=== PATIENT | female | born 1985 | race Two or more races ===

== ENCOUNTER 2024-08-22 22:20 | Emergency (ER) | payer OTHER ==
[~2024-08-22] VITALS: Ht 167.6 cm; Wt 65.2 kg
[2024-08-22 23:23] VITALS: BP 145/98; PULSE 95; RESP 16; TEMP 98.9; O2SAT 97
--- NOTE | 2024-08-22 23:28 | ED.PDOC ---
Foreign Body HPI Comments 39F was cleaning her ear with a q-tip when the tip broke off in her ear just prior to arrival. Patient reports she tried to reach it but was unsuccessful. 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 All Other Systems: Reviewed and Negative Physical Exam General Appearance: No Apparent Distress, Normal HEENT: Other (cotton tip visible in left ear) Neck: Full Range of Motion, Non-Tender, Normal, Normal Inspection Respiratory: NOT DONE Cardiovascular: NOT DONE Breast Exam: Deferred Gastrointestinal: NOT DONE Genitalia: Deferred Pelvic: Deferred Rectal: Deferred Extremities: No calf tenderness, Normal capillary refill, Normal inspection, Normal range of motion, Non-tender, No pedal edema Neurologic: Alert, data entry supervisor II-XII nml as Tested, No Motor Deficits, Normal Affect, Normal Mood, No Sensory Deficits Cerebellar Function: NOT DONE Reflexes: NOT DONE Skin: NOT DONE Lymphatic: No Adenopathy Was a procedure done? Was a procedure done?: Yes Sedation Sedation?: No Foreign Body Removal Foreign body in: Ear Procedure: Removed Informed consent obtained: Yes Risks/benefits/alt described: Yes FB Differential Dx Differential Diagnosis: Foreign Body X-Ray, Labs, Meds, VS Vital Signs Date Time Temp Pulse Resp B/P (MAP) Pulse Ox O2 Delivery O2 Flow Rate FiO2 08/22/24 23:23 Room Air* 0 21 08/22/24 23:23 98.9 95 16 145/98 (114) 97 98.9 08/22/24 23:20 98.9 95 16 145/98 (114) 97 Time of 1ST Reevaluation: 23:27 Reevaluation 1ST: Improved Patient Education/Counseling: Diagnosis, Treatment Family Education/Counseling: No Family Present Departure 1 Departure Time of Disposition: 23:27 (Cotton swab was removed using foreceps. Patient tolerated the procedure well without issue.) Impression: Primary Impression: Foreign body Disposition: 01 HOME / SELF CARE / HOMELESS Condition: Stable Additional Instructions: Your q-tip was removed from your ear. Discharged With: Self Critical Care Note Critical Care Time?: No Stability Stability form required: No Heart Score Heart Score: Heart Score Response (Comments) Value History N/A 0 EKG N/A 0 Age N/A 0 Risk Factors N/A 0 Troponin N/A 0 Total 0 JOLENE RASHID MD Aug 22, 2024 23:28
== END 2024-08-23 00:40 | disposition home or self-care (01) ==
LOC: ER 22:20
DX: S00.452A Superficial foreign body of left ear, initial encounter (principal); X58.XXXA Exposure to other specified factors, initial encounter; Y93.89 Activity, other specified; Y92.89 Other specified places as the place of occurrence of the external cause; Y99.8 Other external cause status
CPT/HCPCS: 69200